=== PATIENT | female | born 1935 | race Caucasian/White ===

== ENCOUNTER → 2022-08-22 | Outpatient (CLI) | payer MEDICARE, MEDICAID ==
[~2022-08-22] MED LIST: AMIT10TA6 PO; BARIUM SULFATE 450ML ORAL SUSP ONE; DOCU100T PO; IBUP-1653 PO; IOHEXOL-300 100 ML BOTTLE ONE; OMEP20CA14 PO; TRAZ-251 PO
== END | disposition home or self-care (01) ==
LOC: CT 07:53
PROVIDERS: ATTEND Internal Medicine Hematology & Oncology
DX: C18.2 Malignant neoplasm of ascending colon (principal); J98.11 Atelectasis; K86.2 Cyst of pancreas; N28.1 Cyst of kidney, acquired; J98.4 Other disorders of lung; D56.1 Beta thalassemia; D71 Functional disorders of polymorphonuclear neutrophils; Z90.49 Acquired absence of other specified parts of digestive tract
CPT/HCPCS: 71260; 74177; Q9967; Z7610